=== PATIENT | female | born 1955 | race Caucasian/White ===

== ENCOUNTER 2017-08-01 22:08 | Emergency (ER) | payer BC ==
[2017-08-01 22:12] VITALS: TEMP 98.5; BMI 24.3
--- NOTE | 2017-08-01 22:15 | PDOC ---
History of Present Illness - General Chief Complaint: Laceration Stated Complaint: LH 3RD FINGER LAC Time Seen by Provider: 08/01/17 22:12 - History of Present Illness Initial Comments: This 62-year-old woman with no significant past medical history presents with left third finger laceration. The patient sustained this injury a few hours prior to presentation when the finger contacted the edge of an open can while she was preparing dinner in her home. She states that the laceration was bled persistently but she kept pressure on the area and continued to post her dinner republican. After the republican was concluded, she came to the emergency room for evaluation. No previous history of poor wound healing/easy bruising/resistant organism colonization or infection. Last tetanus prophylaxis was 2 years ago. She denies weakness/paresthesias/numbness in the finger. No other injury sustained Past History - Past Medical History Allergies/Adverse Reactions: Allergies Allergy/AdvReac Type Severity Reaction Status Date / Time No Known Allergies Allergy Unverified 10/23/13 10:22 Home Medications: Ambulatory Orders No Home Medications 0 dose .ROUTE UTDICT 10/23/13 Other medical history: DENIES - Surgical History Abdominal Surgery: Yes (HERNIA REPAIR) - Immunization History Immunization Up to Date: Yes - Suicide/Smoking/Psychosocial Hx Smoking History: Never smoked Have you smoked in the past 12 months: No Number of Cigarettes Smoked Daily: 0 Hx Alcohol Use: Yes Review of Systems - Review of Systems Able to Perform ROS?: Yes Comments:: 12 point review of systems is negative except for what is noted in the history of present illness *Physical Exam - Vital Signs Last Vital Signs Temp Pulse Resp BP Pulse Ox 98.5 F 137 H 18 165/106 98 08/01/17 22:10 08/01/17 22:10 08/01/17 22:10 08/01/17 22:10 08/01/17 22:10 - Physical Exam Comments: GENERAL: Adult female, alert and oriented 3, in no acute distress HEAD: Normal with no signs of trauma. EYES: PERRLA, EOMI, sclera anicteric, conjunctiva clear. ENT: Ears normal, nares patent, oropharynx clear without exudates. Dry mucous membranes. NECK: Normal range of motion, supple without lymphadenopathy, JVD, or masses. LUNGS: Breath sounds equal, clear to auscultation bilaterally. No wheezes, and no crackles. HEART:Regular rate and rhythm, normal S1 and S2 without murmur, rub or gallop. ABDOMEN:.normal bowel sounds No guarding,tenderness or rebound.No masses No distention. EXTREMITIES: Left third finger2 cm diagonal, linear full-thickness laceration of the distal dorsal aspect of the proximal phalanx Motor functioning and light touch sensory functioning intact distal to the laceration Distal digit is warm and dry with excellent capillary refill Remainder of the extremity exam is normal NEUROLOGICAL: Cranial nerves II through XII grossly intact. Normal speech. No focal neurological deficits. MUSCULOSKELETAL: Back non-tender to palpation, no CVA tenderness Procedures - Laceration/Wound Repair Left Proximal Dorsal Finger 3rd digit Wound Length: to 2.5 cm Wound Explored: clean Wound's Depth, Shape: linear Irrigated w/ Saline: Yes Betadine Prep: No (Hibiclens/ethanol) Anesthesia: 1% Lidocaine Amount of Anesthetic (ccs): 2 Wound Repaired With: Sutures Suture Size/Type: 5:0 Number of Sutures: 4 Sterile Dressing Applied: Yes Splint Applied: No Progress: Left third finger is prepped using Hibiclens/ethanol solution and sterilely draped. 2 mL of 1% lidocaine infiltrated into the wound for local anesthesia. Wound irrigated with 50 mL of sterile normal saline. Base of wound inspected: No evidence of vascular or tendon injury. Wound edges approximated closely and wound closed with 4 interrupted sutures of 5-0 nylon. Bacitracin and dry sterile dressing followed by tube dressing applied. Patient tolerated procedure well. Progress Note - Progress Note Progress Note: This 62-year-old woman presented with linear full-thickness laceration of the dorsal surface of the proximal phalanx, left third finger. No evidence of vascular or tendon involvement. Wound repaired as noted above. Patient is up- to-date on her tetanus prophylaxis. Patient advised to return if there is any evidence of infection. Meanwhile, she should keep the areas dry as possible for 2 days and then use protective dressing during the day/open at night. Patient will return here or see her doctor for removal of the sutures on , August 06(she is traveling on the ) *DC/Admit/Observation/Transfer Diagnosis at time of Disposition: Laceration of finger of left hand Qualifiers: Finger: middle finger Damage to nail status: without damage Foreign body presence: without foreign body - Discharge Dispostion Disposition: HOME Condition at time of disposition: Stable - Referrals Referrals: STAFF,NOT ON [Primary Care Provider] - - Patient Instructions Printed Discharge Instructions: How to Care for a Laceration After Repair Additional Instructions: Keep hand elevated tonight Keep original dressing in place for 48 hours, as dry possible After 48 hours, Band-Aid/bacitracin during day and open at night No immersion until sutures removed Return if area becomes red/swollen/painful Have sutures removed on August 06
[2017-08-01 23:04] VITALS: BP 150/99; PULSE 85
== END 2017-08-01 23:07 | disposition home or self-care (01) ==
LOC: FER 22:08
PROC: 0HQGXZZ Repair Left Hand Skin, External Approach (ICD-10-PCS; principal; 2017-08-01)
DX: S61.213A Laceration without foreign body of left middle finger without damage to nail, initial encounter (principal); W26.8XXA Contact with other sharp object(s), not elsewhere classified, initial encounter; Y93.G3 Activity, cooking and baking; Y92.000 Kitchen of unspecified non-institutional (private) residence as the place of occurrence of the external cause
CPT/HCPCS: 99281-25